=== PATIENT | male | born 2005 | race Two or more races ===

== ENCOUNTER 2023-12-26 12:08 | Emergency (ER) | payer OTHER ==
[2023-12-26 12:15] VITALS: BP 136/70; PULSE 63; RESP 18; TEMP 97.9; BMI 20.2
== END 2023-12-26 13:15 | disposition home or self-care (01) ==
LOC: JER 12:08
DX: R07.89 Other chest pain (principal)
CPT/HCPCS: 93005; 93010; 99283-25